=== PATIENT | male | born 1995 | race African-American/Black ===

== ENCOUNTER 2021-09-11 01:07 | Emergency (ER) | payer SELFPAY ==
[~2021-09-11] VITALS: Ht 172.7 cm; Wt 82.0 kg
[2021-09-11] MEDS ORDERED: ONDANSETRON HCL 4MG/2ML INJ IV STA (01:16)
[2021-09-11] MEDS ORDERED: MORPHINE SULFATE 4 MG/ML CPJ (NOT FOR IM USE) IV STA (01:16)
[2021-09-11] MEDS ORDERED: CEFAZOLIN 1000MG PREMIX 50 ML IV ONE (01:30)
[2021-09-11] MEDS ORDERED: SODIUM CHLORIDE 0.9% 1,000 ML IV ONE (01:30)
[2021-09-11 01:34] VITALS: BP 135/100
[2021-09-11] MEDS ORDERED: CEPH500T MT (03:03)
[2021-09-11] MEDS ORDERED: IBUP-2029 MT (03:03)
== END 2021-09-11 03:20 | disposition home or self-care (01) ==
LOC: ER 01:07
DX: S51.831A Puncture wound without foreign body of right forearm, initial encounter (principal); W34.09XA Accidental discharge from other specified firearms, initial encounter; Y93.89 Activity, other specified; Y92.89 Other specified places as the place of occurrence of the external cause; Y99.8 Other external cause status
CPT/HCPCS: 73060; 73090; 96365; 96375; 99284; J0690; J2270; J2405; J7030; A4565